=== PATIENT | male | born 1995 | race Caucasian/White ===

== ENCOUNTER 2021-11-13 11:35 | Emergency (ER) | payer SELFPAY ==
[~2021-11-13 11:35] MED LIST: BACTROBAN OINT22 GM EXT; CEPHALEXIN500 M1 PO
== END 2021-11-13 12:20 | disposition home or self-care (01) ==
LOC: ER1 11:35
DX: S01.01XD Laceration without foreign body of scalp, subsequent encounter (principal); W22.8XXD Striking against or struck by other objects, subsequent encounter
CPT/HCPCS: 99281